=== PATIENT | female | born 1990 | race Caucasian/White ===

== ENCOUNTER 2020-07-06 07:59 | Emergency (ER) | payer OTHER ==
[2020-07-06] MEDS ORDERED: DICLOFENAC SODI75 MG PO (09:51)
== END 2020-07-06 10:16 | disposition home or self-care (01) ==
LOC: FER 07:59
DX: S20.212A Contusion of left front wall of thorax, initial encounter (principal); S80.01XA Contusion of right knee, initial encounter; S70.02XA Contusion of left hip, initial encounter; F17.210 Nicotine dependence, cigarettes, uncomplicated; V48.0XXA Car driver injured in noncollision transport accident in nontraffic accident, initial encounter; Y92.410 Unspecified street and highway as the place of occurrence of the external cause
CPT/HCPCS: 71260; Q9967

== ENCOUNTER 2020-07-29 00:45 | Emergency (ER) | payer OTHER ==
[~2020-07-29 00:45] MED LIST: DICLOFENAC SODI75 MG PO
[2020-07-29] MEDS ORDERED: NORCO 5-325 TA1 EACH PO (05:29)
== END 2020-07-29 05:45 | disposition home or self-care (01) ==
LOC: FER 00:45
DX: S82.52XA Displaced fracture of medial malleolus of left tibia, initial encounter for closed fracture (principal); S90.31XA Contusion of right foot, initial encounter; F17.200 Nicotine dependence, unspecified, uncomplicated; V03.90XA Pedestrian on foot injured in collision with car, pick-up truck or van, unspecified whether traffic or nontraffic accident, initial encounter; Y92.410 Unspecified street and highway as the place of occurrence of the external cause
CPT/HCPCS: 73610; 73630